=== PATIENT | male | born 1985 | race African-American/Black ===

== ENCOUNTER 2018-01-18 07:18 | Emergency (ER) | payer OTHER ==
[~2018-01-18] VITALS: Ht 177.8 cm; Wt 122.5 kg
[2018-01-18] MEDS ORDERED: IBUPROFEN 800800 M1 PO (07:31)
[2018-01-18] MEDS ORDERED: ACID REFLUX PILL (07:32)
[2018-01-18 07:56] LABS: ABSOLUTE LYMPHOCYTES 1.8 thou/uL (0.8-5.3); ABSOLUTE MONOCYTES 0.7 thou/uL (0.0-1.2); ABSOLUTE NEUTROPHILS 5.1 thou/uL (1.6-8.1); BASOPHILS 0.4 %; EOSINOPHILS 0.6 %; HEMATOCRIT 44.6 % (42.0-52.0); HEMOGLOBIN 14.8 gm/dL (14.0-18.0); MCH 28.3 pg (26.0-34.0); MCHC 33.1 g/dL (28.0-37.0); MCV 85.3 fL (80.0-100.0); MONOCYTES 9.6 %; NUCLEATED RBCS 0 /100WBC; PLATELET COUNT* 189 thou/uL (150-400); POLYS 66.4 %; RBC 5.23 mil/uL (4.50-6.00); RDW-CV 13.9 % (10.5-14.5); WBC 7.6 thou/uL (4.0-11.0)
[2018-01-18 08:04] LABS: ANION GAP 8 mmol/L (7-16); BUN 12 mg/dL (7-18); CALCIUM 9.3 mg/dL (8.5-10.1); CHLORIDE 105 mmol/L (98-107); CO2 26 mmol/L (21-32); CREATININE 1.1 mg/dL (0.6-1.3); GLUCOSE 110 mg/dL (70-99); POTASSIUM 3.8 mmol/L (3.5-5.1); SODIUM 139 mmol/L (136-145)
[2018-01-18 08:11] LABS: ALBUMIN 4.2 g/dL (3.4-5.0); ALKALINE PHOSPHATASE 53 U/L (46-116); LIPASE 97 U/L (73-393); SGOT 16 U/L (15-37); SGPT 41 U/L (30-65); TOTAL BILIRUBIN 1.1 mg/dL (<0.1-1.0); TOTAL PROTEIN 7.9 g/dL (6.4-8.2); TROPONIN-I LEVEL <0.06 ng/mL (<0.06)
[2018-01-18] MEDS ORDERED: KEFLEX500 M1 PO (12:55)
[2018-01-18] MEDS ORDERED: NORCO 5-325 TA1 EACH PO (12:55)
[2018-01-18] MEDS ORDERED: ZOFRAN ODT4 MG PO (12:55)
[2018-01-18 13:06] VITALS: BP 145/91
--- NOTE | 2018-01-19 12:59 | EKG ---
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 : 1985 Requested By: Devaughn Smallwood Order Number: [id number] MD: Rubio Nguyen Measurements Intervals [place] Rate: 61 P: 41 OK: 139 QRS: 67 QRSD: 96 T: -17 QT: 385 QTc: 388 Interpretive Statements Sinus rhythm Nonspecific repol abnormality, inferior leads Minimal ST elevation, lateral leads No previous ECG available for comparison Electronically Signed On 01-19-2018 12:59:44 CDT by Rubio Nguyen [email or web address] <ELECTRONICALLY SIGNED> By: Rubio Nguyen MD, LOCATED WITHIN [facility] 01/19/18 1259 D: [id number] Rubio Nguyen MD, FAC /EPI
== END 2018-01-18 13:06 | disposition home or self-care (01) ==
LOC: M.ERS 07:18
PROVIDERS: Emergency Medicine Emergency Medical Services
DX: K81.9 Cholecystitis, unspecified (principal)